=== PATIENT | female | born 1985 | race Native Hawaiian/Other Pacific Islander ===

== ENCOUNTER 2021-11-15 21:30 | Emergency (ER) | payer OTHER ==
[~2021-11-15] VITALS: Ht 177.8 cm; Wt 88.5 kg
[2021-11-15] MEDS ORDERED: DULO60 PO (22:25)
[2021-11-15] MEDS ORDERED: Amitriptyline H10 MG PO (22:26)
[2021-11-15] MEDS ORDERED: DIAZ5 PO (22:26)
== END 2021-11-15 22:43 | disposition home or self-care (01) ==
LOC: ER 21:30
DX: S06.0X0A Concussion without loss of consciousness, initial encounter (principal); W22.8XXA Striking against or struck by other objects, initial encounter; Z88.0 Allergy status to penicillin
CPT/HCPCS: 99283; A9270

== ENCOUNTER 2023-01-17 12:55 | Emergency (ER) | payer OTHER ==
[~2023-01-17] VITALS: Ht 175.3 cm; Wt 95.2 kg
[~2023-01-17 12:55] MED LIST: Amitriptyline H10 MG PO; DIAZ5 PO; DULO60 PO
[2023-01-17 13:20] VITALS: BP 141/96
[2023-01-17] MEDS ORDERED: CLIN300 PO (14:36)
[2023-01-17] MEDS ORDERED: NAPR500 PO (14:36)
== END 2023-01-17 14:45 | disposition home or self-care (01) ==
LOC: ER 12:55
DX: K04.7 Periapical abscess without sinus (principal); K02.9 Dental caries, unspecified; S02.5XXA Fracture of tooth (traumatic), initial encounter for closed fracture; X58.XXXA Exposure to other specified factors, initial encounter
CPT/HCPCS: 99282

== ENCOUNTER 2024-12-24 05:15 | Observation (INO) | payer OTHER ==
[~2024-12-24] VITALS: Ht 175.3 cm; Wt 108.9 kg
[2024-12-25 07:21] VITALS: BP 117/62
== END 2024-12-25 10:30 | disposition home or self-care (01) ==
LOC: ER 05:15 → SURS 05:17
PROVIDERS: ADMIT Surgery
PROC: 0FT44ZZ Resection of Gallbladder, Percutaneous Endoscopic Approach (ICD-10-PCS; principal; 2024-12-24)
DX: K80.12 Calculus of gallbladder with acute and chronic cholecystitis without obstruction (principal); F41.9 Anxiety disorder, unspecified; Z79.899 Other long term (current) drug therapy; Z88.0 Allergy status to penicillin

== ENCOUNTER 2025-01-09 20:56 | Emergency (ER) | payer OTHER ==
[~2025-01-09] VITALS: Ht 175.3 cm; Wt 108.9 kg
[~2025-01-09 20:56] MED LIST changes: +CLIN300 PO; +LAMO100 PO; +NAPR500 PO; +VENL37.5ER PO
[2025-01-09 22:21] LABS: Source, Urine Clean Catch
[2025-01-09 22:26] LABS: Bilirubin, Urine Neg (Neg); Blood, Urine Neg (Neg); Glucose Qualitative, Urine Neg (Neg); Ketones, Urine Neg (Neg); Leukocyte Esterase, Urine Neg (Neg); Nitrite, Urine Neg (Neg); Protein, Urine 1+ (Neg); Specific Gravity, Urine 1.015 (1.003-1.022); Urobilinogen, Urine NORM (Normal); pH, Urine 6.5 (5.0-8.0)
[2025-01-09 22:26] LABS: BASOPHILS ABSOLUTE AUTO 0.06 K/mm3 (0.00-0.23); BASOPHILS PERCENT AUTO 1 % (0-2); EOSINOPHILS ABSOLUTE AUTO 0.36 K/mm3 (0.00-0.68); EOSINOPHILS PERCENT AUTO 3 % (0-6); Hematocrit 48.4 % (33.0-51.0); Hemoglobin 16.2 g/dL (11.5-16.0); IMMATURE GRAN ABSOLUTE AUTO 0.02 K/mm3 (0.00-0.10); IMMATURE GRAN PERCENT AUTO 0 % (0-1); LYMPHOCYTES ABSOLUTE AUTO 2.29 K/mm3 (0.84-5.20); LYMPHOCYTES PERCENT AUTO 21 % (21-46); MONOCYTES ABSOLUTE AUTO 0.64 K/mm3 (0.16-1.47); MONOCYTES PERCENT AUTO 6 % (4-13); Mean Corpuscular HGB 30.1 pg (26.0-34.0); Mean Corpuscular HGB Conc 33.5 g/dL (31.5-36.5); Mean Corpuscular Volume 90 fL (80-100); Mean Platelet Volume 9.6 fL (9.1-12.4); NEUTROPHILS ABSOLUTE AUTO 7.33 K/mm3 (1.96-9.15); NEUTROPHILS PERCENT AUTO 68 % (41-73); Platelet Count 458 K/mm3 (150-400); RDW Coefficient Variation 15.2 % (11.7-14.2); RDW Standard Deviation 50.4 fL (35.1-46.3); Red Blood Cell Count 5.39 M/mm3 (3.80-5.20)
[2025-01-09 22:44] LABS: Appearance, Urine Clear (Clear); Color, Urine Pale Yellow (P-Yellow)
[2025-01-09 22:50] LABS: Albumin, Blood 3.9 g/dL (3.4-5.0); Albumin/Globulin Ratio 0.8 (0.8-1.8); Bilirubin, Total 0.2 mg/dL (0.1-1.0); Bun/Creatinine Ratio 14.5 (12.0-20.0); Calcium, Blood 9.4 mg/dL (8.5-10.1); Creatinine, Blood 0.76 mg/dL (0.40-1.00); Globulin, Blood 5.2 g/dL (2.2-4.0); Potassium, Blood 3.9 mmol/L (3.5-5.5); Total Protein, Blood 9.1 g/dL (6.4-8.2)
[2025-01-10 00:12] VITALS: BP 137/89
== END 2025-01-10 00:10 | disposition home or self-care (01) ==
LOC: ER 20:56
PROVIDERS: Student in an Organized Health Care Education/Training Program
DX: R42 Dizziness and giddiness (principal); Z88.0 Allergy status to penicillin; Z90.49 Acquired absence of other specified parts of digestive tract; Z79.899 Other long term (current) drug therapy
CPT/HCPCS: 71046; 80053; 83690; 84484; 84703; 85025; 93005; 93010; 99284-25